=== PATIENT | female | born 1970 | race American Indian/Alaskan Native ===

== ENCOUNTER 2017-10-08 16:08 | Emergency (ER) | payer MEDICARE, BC ==
[2017-10-08 17:04] VITALS: RESP 18; TEMP 98.2
--- NOTE | 2017-10-08 17:55 | ED PDOC ---
Arrival/HPI - General Chief Complaint: Upper Extremity Problem/Injury Time Seen by Provider: 10/08/17 17:32 Historian: Patient - History of Present Illness Narrative History of Present Illness (Text): 10/08/17 17:51 47 year old female, with a past medical history that includes cervical spinal fusion, presents to the emergency department with worsening neck pain. Patient has had her pain reoccur in the past 2 days, and states the pain radiates down both her arms as well. Patient denies any fever, chills, headache, dizziness, chest pain, shortness of breath, cough, abdominal pain, nausea, vomiting, diarrhea, urinary/bowel changes, or any other complaint. Time/Duration: Prior to Arrival Symptom Onset: Gradual Symptom Course: Unchanged Past Medical History - Provider Review Nursing Documentation Reviewed: Yes - Cardiac Hx Hypertension: Yes - Psychiatric Hx Anxiety: Yes Hx Depression: Yes Hx Substance Use: No - Surgical History Other/Comment: Heart sx - Suicidal Assessment Feels Threatened In Home Enviroment: No Family/Social History - Physician Review Nursing Documentation Reviewed: Yes Family/Social History: No Known Family HX Smoking Status: Never Smoked Hx Alcohol Use: Yes Frequency of alcohol use: Socially Hx Substance Use: No Allergies/Home Meds Allergies/Adverse Reactions: Allergies No Known Allergies Allergy (Verified 10/08/17 17:04) Home Medications: Home Meds Medication Instructions Recorded Confirmed Acetaminophen with Codeine 1 tab PO Q6 PRN 10/08/17 10/08/17 [Tylenol with Codeine #3 Tablet] Amitriptyline HCl [Amitriptyline 100 mg PO DAILY 10/08/17 10/08/17 HCl] Atorvastatin [Lipitor] 40 mg PO DAILY 10/08/17 10/08/17 Dextromethorphan HBr/Quinidine 1 cap PO DAILY 10/08/17 10/08/17 [Nuedexta 20-10 mg Capsule] Esomeprazole Magnesium [Nexium] 40 mg PO DAILY 10/08/17 10/08/17 Furosemide [Lasix] 40 mg PO DAILY 10/08/17 10/08/17 Lisinopril [Zestril] 40 mg PO DAILY 10/08/17 10/08/17 Hotchkiss Carbonate ER Tab [Hotchkiss 900 mg PO QPM 10/08/17 10/08/17 Carbonate] Lorazepam [Ativan] 1 mg PO TID 10/08/17 10/08/17 Pregabalin [Lyrica] 100 mg PO HS 10/08/17 10/08/17 Primidone [Mysoline] 50 mg PO DAILY 10/08/17 10/08/17 Prochlorperazine [Compazine] 10 mg PO DAILY PRN 10/08/17 10/08/17 cloNIDine [Catapres] 0.1 mg PO DAILY 10/08/17 10/08/17 fentaNYL 25 mcg/hr [Duragesic 25 mcg TD Q72 10/08/17 10/08/17 Patch 25 mcg/hr] Review of Systems - Physician Review All systems were reviewed & negative as marked: Yes - Review of Systems Constitutional: Normal. absent: Fevers, Night Sweats Eyes: Normal ENT: Normal Respiratory: Normal. absent: SOB, Cough Cardiovascular: Normal. absent: Chest Pain Gastrointestinal: Normal. absent: Abdominal Pain, Diarrhea, Nausea, Vomiting Genitourinary Female: Normal. absent: Urine Output Changes Musculoskeletal: Neck Pain (radiating down both arms) Skin: Normal Neurological: absent: Headache, Dizziness Endocrine: Normal Hemo/Lymphatic: Normal Psychiatric: Normal Physical Exam Vital Signs Reviewed: Yes Vital Signs Temp Pulse Resp BP Pulse Ox 10/08/17 18:41 76 18 136/78 99 10/08/17 17:02 98.2 F 83 18 100 Temperature: Afebrile Blood Pressure: Normal Pulse: Regular Respiratory Rate: Normal Appearance: Positive for: Well-Appearing, Non-Toxic, Comfortable Pain Distress: None Mental Status: Positive for: Alert and Oriented X 3 - Systems Exam Head: Present: Atraumatic, Normocephalic Pupils: Present: PERRL Extroacular Muscles: Present: EOMI Conjunctiva: Present: Normal Mouth: Present: Moist Mucous Membranes Neck: Present: Normal Range of Motion Respiratory/Chest: Present: Clear to Auscultation, Good Air Exchange. No: Respiratory Distress, Accessory Muscle Use Cardiovascular: Present: Regular Rate and Rhythm, Normal S1, S2. No: Murmurs Abdomen: No: Tenderness, Distention, Peritoneal Signs Back: Present: Normal Inspection Upper Extremity: Present: Normal Inspection. No: Cyanosis, Edema Lower Extremity: Present: Normal Inspection. No: Edema Neurological: Present: GCS=15, CN II-XII Intact, Speech Normal Skin: Present: Warm, Dry, Normal Color. No: Rashes Psychiatric: Present: Alert, Oriented x 3, Normal Insight, Normal Concentration Medical Decision Making ED Course and Treatment: 10/08/17 17:57 Impression: 47 year old female presents to the emergency department with worsening neck pain. Plan: -- Toradol -- Flexeril -- Reassess and disposition Prior Visits: Notes and results from previous visits were reviewed. Progress Notes: 10/08/17 19:35 pt with known cervival disc disease s/p surgeyr in past. in er. neuro intact. pt denies any trauma. non indication for imaging. pain med dosed. pt observed in nad, joking laughing, advise oupt fu. - Medication Orders Current Medication Orders: Discontinued Medications Cyclobenzaprine HCl (Flexeril) 10 mg PO STAT STA Stop: 10/08/17 17:50 Last Admin: 10/08/17 18:31 Dose: 10 mg Ketorolac Tromethamine (Toradol) 30 mg IM STAT STA Stop: 10/08/17 17:50 Last Admin: 10/08/17 18:31 Dose: 30 mg MAR Pain Assessment Document 10/08/17 18:31 GMD (Rec: 10/08/17 18:31 GMD [id number]) Pain Reassessment Is this a pain reassessment? No Presence of Pain Presence of Pain Yes IM Administration Charges Document 10/08/17 18:31 GMD (Rec: 10/08/17 18:31 GMD [id number]) Injection Site MAR Injection Site Left Deltoid Charges for Administration # of IM Administrations 1 - Scribe Statement The provider has reviewed the documentation as recorded by the Lauren Mirza Provider Scribe Attestation: All medical record entries made by the Patriziaibwilliam were at my direction and personally dictated by me. I have reviewed the chart and agree that the record accurately reflects my personal performance of the history, physical exam, medical decision making, and the department course for this patient. I have also personally directed, reviewed, and agree with the discharge instructions and disposition. Disposition/Present on Arrival - Present on Arrival Any Indicators Present on Arrival: No History of DVT/PE: No History of Uncontrolled Diabetes: No Urinary Catheter: No History of Decub. Ulcer: No History Surgical Site Infection Following: None - Disposition Have Diagnosis and Disposition been Completed?: Yes Diagnosis: Neck pain Disposition: HOME/ ROUTINE Disposition Time: 06:00 Condition: STABLE Discharge Instructions (ExitCare): Radiculopathy, Chronic Neck Pain (DC) Additional Instructions: please follow up with your doctor. return to er with worsening symptoms or concerns. please see specialist. Prescriptions: Cyclobenzaprine [Cyclobenzaprine HCl] 10 mg PO DAILY PRN #10 tab PRN Reason: Muscle Spasm Lidocaine 5% [Lidoderm] 1 ea TD DAILY PRN #4 patch PRN Reason: Pain, Mild (1-3) Naproxen 500 mg PO BID PRN #14 tab PRN Reason: Pain, Mild (1-3) Referrals: Román Lizarraga MD [Staff Provider] - Follow up with primary Forms: [employer] (Turkmen)
[2017-10-08 18:41] VITALS: BP 136/78; PULSE 76; O2SAT 99
== END 2017-10-08 18:57 | disposition home or self-care (01) ==
LOC: ED 16:08
DX: M54.2 Cervicalgia (principal); I10 Essential (primary) hypertension
CPT/HCPCS: 96372; 99284; J1885